=== PATIENT | female | born 1970 | race Caucasian/White ===

== ENCOUNTER 2016-12-14 15:02 | Outpatient (CLI) ==
[2016-07-24 19:10] VITALS: BMI 38.2
--- NOTE | 2016-12-15 09:04 | MRI ---
EXAM: Lumbar spine MRI without contrast. HISTORY: Low back pain. Previous reports indicate a history of diskitis and osteomyelitis after lum bar surgery February 2016. Prior lumbar surgery February 2016 and January 2012. COMPARISON: Lumbar spine MRI 07/26/2016, lumbar spine MRI 04/28/2016, lumbar spine MRI 12/13/[address] abdomen and pelvis 09/11/2015. TECHNIQUE: Multiplanar, multisequence MR images were acquired lumbar spine without contrast. FINDINGS: Five lumbar-type vertebra are present. There is minor lower lumbar dextroscoliosis and m ild straightening of the usual lumbar lordosis with 1.5 mm retrolisthesis of L4 on L5 and 3.7 mm ret rolisthesis of L5 on S1. The lumbar vertebra are normal in height and intrinsic bone marrow signal. There is mild endplate irregularity, moderate disc space narrowing and disc desiccation at L3-4 un changed from previously. At L4, the hypointense T1, bright STIR signal has resolved and at L5 and S 1, the low T1, bright STIR signal edema/inflammation has markedly improved. Bright STIR signal in th e L5-S1 intervertebral disc has improved with residual bright STIR signal anteriorly. However, ther e is increased loss of height of the intervertebral disc space. Endplate irregularity persists and is slightly more well defined on the current exam. There is now developing dark STIR signal in the upper S1 vertebra. No new degenerative endplate changes are present and there is no paravertebral ab scess. Conus medullaris ends at T12-L1. Canal diameter is developmentally narrow. Contrast was no t administered. There is a stable 4.3 cm AP by 2.9 cm TX right adrenal mass. The visualized kidneys are unremarkabl e. A small slightly prominent left ovarian follicle is noted that measures 9.7 mm in diameter. A 3 mm hyperintense T2 signal probable endometrial cyst is present. T12-L1: The intervertebral disc is normal. L1-2: The intervertebral disc is normal. L2-3: There is a minimal disc bulge without central canal stenosis or foraminal stenosis. L3-4: There are postoperative right microdiskectomy changes with a right partial laminotomy. There is a mild disc bulge with focal soft tissue signal along the midline margin of the disc that extend s below the disc level unchanged from the previous exam. Contrast was not administered. Mild bilate ral facet arthropathy and ligamentum flavum hypertrophy and prominent dorsal epidural fat is present . In this patient with a developmentally narrow canal, there is mild to moderate spinal stenosis an d mild bilateral foraminal stenosis. AP diameter of the thecal sac is 7.2 mm. L4-5: There are postoperative right microdiskectomy changes and there is a mild disc bulge and hypo intense T1 soft tissue signal consistent with granulation tissue in the anterior and lateral epidura l space. Mild bilateral hypertrophic facet arthropathy is present and there is mild spinal stenosis and moderate right and mild left neural foraminal stenosis. AP diameter of the thecal sac is 7.6 mm . L5-S1: There are postoperative right microdiskectomy changes with hypointense T1 soft tissue in the right anterior epidural space partially surrounding the right S1 nerve. There is a mild diffuse di sc osteophyte complex that contacts the anterior right S1 nerve. Left greater than right facet hype rtrophy is present and there is moderate right and mild left neural foraminal stenosis with encroach ment on both L5 nerves. IMPRESSION: 1. Status post right micro discectomies at L3-4, L4-5 and L5-S1. 2. Compared to 07/26/2016, mild bright STIR signal persists at L5-S1 consistent with improving disk itis and osteomyelitis. Signal changes at L4-5 have resolved. 3. Mild lumbar degenerative spondylosis which causes mild to moderate L3-4 and mild L4-5 spinal obdulio nosis. 4. Moderate right L4-5 and L5-S1 neural foraminal stenosis. 5. Stable 4.3 cm x 2.9 cm right adrenal mass consistent with a benign adenoma better demonstrated o n 09/11/2015.
== END 2016-12-14 15:03 | disposition home or self-care (01) ==
LOC: RAD 15:02
PROVIDERS: ATTEND Physician Assistant Medical
DX: M54.5 Low back pain (principal)